=== PATIENT | female | born 1990 | race Caucasian/White ===

== ENCOUNTER 2020-01-03 17:49 | Day surgery (SDC) | payer BC ==
[2020-01-03 18:33] VITALS: BP 120/79; TEMP 98.2; BMI 23.6
[2020-01-03] MEDS ORDERED: hydrALAZINE 20 MG/ML VIAL SLOW IVP PRN (18:41)
--- NOTE | 2020-01-03 18:54 | PDOC.EVN ---
Event Note - Event Note Event Note: At bedside, clinically well...rather than 2 hrs obs we will do 1 hr as stable and lives near by.
--- NOTE | 2020-01-03 19:06 | HP ---
TIME OF EVALUATION: Roughly 1830 hours. LOCATION: Labor and Delivery Triage in bed A. REASON FOR EVALUATION: Suspected onset of labor. HISTORY OF PRESENT ILLNESS: This is a 29-year-old female, who is a 2, para 1, with a prior vaginal , who is at 37 weeks and 5 days with possible contractions. She denies vaginal bleeding or leakage of fluid and has good movement. She denies any complications. She denies headaches, visual changes, or right upper quadrant pain. REVIEW OF SYSTEMS: Complete review of systems was checked and is otherwise negative unless specified in the HPI. PAST MEDICAL HISTORY: Noncontributory. ALLERGIES: NONE. OB HISTORY: She is G2, P1. SOCIAL HISTORY: Negative. PHYSICAL EXAMINATION: VITAL SIGNS: Her blood pressure is 120/79, pulse is 97, respirations are 18, temperature is 98.2. GENERAL: She is in no acute distress. ABDOMEN: Soft and nontender. There is no gross evidence of bleeding or of ruptured membranes. Cervical exam is 3 cm dilated, 80% effaced, 0 station according to the nurse, who checked her at initial check, and she states that she was 2 cm dilated, 75% effaced, and [address] Mooney, who is her regular [facility] provider at last check. On external monitor, heart tones are Reactive/category 1. Contractions on TOCO are irregular, but about every 6 to 7, to 6 to 8 minutes. ASSESSMENT: This is a G2, P1, at early term with latent labor. PLAN: 1. Observe for 2 hours. 2. Reassuring heart tones. 3. If the patient makes cervical change or there is evidence of labor progress, we will admit. Otherwise, we will do outpatient management. Job ID: [id number]
--- NOTE | 2020-01-03 20:12 | PDOC.EVN ---
Event Note - Event Note Event Note: At bedside...clinically well. Recheck at 2 hr micah Ts cat 1
== END 2020-01-03 20:50 | disposition home or self-care (01) ==
LOC: L&D/OP 17:49
PROVIDERS: ATTEND Obstetrics & Gynecology
DX: O47.1 False labor at or after 37 completed weeks of gestation (principal); Z3A.37 37 weeks gestation of pregnancy

== ENCOUNTER 2020-01-16 05:36 | Inpatient (IN) | payer BC ==
[2020-01-16 06:01] VITALS: BMI 23.7
[2020-01-16] MEDS ORDERED: NS / Oxytocin 40 units/1000ml 1,000 ML IV PRN (06:10)
[2020-01-16] MEDS ORDERED: NS w/ Oxytocin 10 units 500 ML IV SCH ×2 (06:10)
[2020-01-16] MEDS ORDERED: Ondansetron PF 4 MG/2 ML Vial IVP PRN ×3 (06:10→14:12)
[2020-01-16] MEDS ORDERED: Butorphanol Tartrate 1 MG/ML VIAL SLOW IVP PRN (06:10)
[2020-01-16] MEDS ORDERED: Promethazine HCl 25 MG/ML VIAL IM PRN ×2 (06:10→08:53)
[2020-01-16] MEDS ORDERED: Lidocaine 1% (PF) 30 ML VIAL SC PRN (06:10)
[2020-01-16] MEDS ORDERED: hydrALAZINE 20 MG/ML VIAL SLOW IVP PRN ×2 (06:10→14:12)
[2020-01-16] MEDS ORDERED: HYDROcodone/Acetaminophen 5/325 mg Tablet PO PRN ×4 (06:10→14:12)
[2020-01-16] MEDS ORDERED: Ibuprofen 800 MG TAB PO PRN (06:10)
[2020-01-16] MEDS: Lactated Ringer's 1,000 ML IV SCH ×2 (06:22→08:50)
[2020-01-16 06:44] LABS: Hemoglobin 11.8 g/dL (12.0-16.0); Mean Corpuscular Hemoglobin 29.7 pg (27.0-31.0); Mean Corpuscular Volume 85.1 fL (78.0-98.0); Mean Platelet Volume 8.4 fL (7.4-10.4); Platelet Count 225 thou/uL (130-400); RBC Distribution Width 17.4 % (11.5-14.5); Red Blood Cell (RBC) Count 3.97 mill/uL (4.20-5.40); White Blood Cell (WBC) Count 8.4 thou/uL (4.8-10.8)
[2020-01-16 07:25] LABS: HBSAg Index 0.16 S/CO (0-0.99); Hep B Surf Ag Non-Reactive S/CO (NonReactive); Syphilis Antibody Nonreactive (Nonreactive); Syphilis Antibody Index 0.05 S/CO (<1.00 Non-Reactive)
[2020-01-16] MEDS ORDERED: Fentanyl 4 mcg/Bup 0.1% Cadd 100 ML ONE (08:12)
[2020-01-16] MEDS ORDERED: Acetaminophen 325 MG TAB PO PRN (08:53)
[2020-01-16] MEDS ORDERED: Lactated Ringer's 500 ML IV PRN (08:53)
[2020-01-16] MEDS ORDERED: Naloxone HCl 0.4 mg/ml Vial IVP PRN ×2 (08:53)
[2020-01-16] MEDS ORDERED: diphenhydrAMINE 50 MG/ML VIAL IVP PRN (08:53)
[2020-01-16] MEDS ORDERED: EPHEDRINE 25 MG/5 ML SYRINGE SLOW IVP PRN (08:53)
[2020-01-16] MEDS ORDERED: Communication Order-Pharmacy FS SCH (09:00)
[2020-01-16] MEDS ORDERED: Fentanyl 4 mcg/Bupivacaine 0.1% Cassette 100 ML EPIDURAL SCH (09:00)
--- NOTE | 2020-01-16 10:45 | PDOC.OPDEL ---
OB Operative/Delivery Note Delivery Dr/Surgeon: Vinicio Pre-Delivery Diagnosis: elective induction Procedure/Post Delivery Dx: spontaneous vaginal delivery Weeks gestation: 39 Anesthesia: epidural - Findings A Sex: male - Additional Findings/Plan Placenta delivered: spontaneous Repaired Obstetrical Laceration: vaginal Estimated blood loss: 100ml
[2020-01-16] MEDS ORDERED: Preparation H Ointment 28 GM TUBE PR PRN (14:12)
[2020-01-16] MEDS ORDERED: Bisacodyl 10 MG SUPP PR PRN (14:12)
[2020-01-16] MEDS ORDERED: NS / Oxytocin 40 units/1000ml 1,000 ML IV SCH (14:12)
[2020-01-16] MEDS ORDERED: Lanolin Ointment 7 GM TUBE TOP PRN (14:12)
[2020-01-16] MEDS ORDERED: Benzocaine-Menthol 82.5 ML CAN TOP PRN (14:12)
[2020-01-16] MEDS ORDERED: diphenhydrAMINE 25 MG CAP PO PRN (14:12)
[2020-01-16] MEDS ORDERED: Milk Of Magnesia 30 ML UDCUP PO PRN (14:12)
[2020-01-16] MEDS ORDERED: Bupivacaine 0.25% HCL 30 ML VIAL ONE (14:23)
[2020-01-16] MEDS: Ibuprofen 800 MG TAB PO SCH ×2 (15:17→23:25)
[2020-01-16] MEDS: Ferrous Sulfate 325 MG TAB PO SCH (15:17)
[2020-01-16] MEDS: Docusate Calcium (SURFAK) 240 MG CAP PO SCH (23:25)
[2020-01-17 05:13] VITALS: TEMP 98.3
--- NOTE | 2020-01-17 07:51 | PDOC.PP ---
Post Progress Note Post Day #: 1 Subjective: doing well, no concerns. PO intake tolerated: yes Flatus: yes Ambulation: yes Vital Signs (12 hours) Temp Pulse Resp BP 01/17/20 04:00 98.3 F 91 14 121/80 Weight Weight 134 lb - Physical Examination Respiratory: non-labored breathing Abdominal: no distention Fundus firm & at: below umb Neurological: no gross focal deficits Psychiatric: A&Ox3, normal affect Result Diagrams: 01/16/20 06:35 Additional Labs: Post Labs Blood Type A POSITIVE 01/16/20 06:35 Hep Bs Antigen Non-Reactive S/CO (NonReactive) 01/16/20 06:35 (1) 39 weeks gestation of Code(s): Z3A.39 - 39 WEEKS GESTATION OF Status: Acute (2) Vaginal delivery Code(s): O80 - ENCOUNTER FOR FULL-TERM UNCOMPLICATED DELIVERY Status: Acute - Assessment/Plan PPD1 doing well, desires DC home today.
[2020-01-17 08:14] VITALS: BP 121/75
[2020-01-17] MEDS: Ferrous Sulfate 325 MG TAB PO SCH (08:49)
[2020-01-17] MEDS: Docusate Calcium (SURFAK) 240 MG CAP PO SCH (08:49)
[2020-01-17] MEDS ORDERED: Adacel (T-DAP) 0.5 ML SYRINGE IM ONE (09:00)
[2020-01-17] MEDS ORDERED: Prenatal Vitamin 1 TAB PO SCH (09:00)
== END 2020-01-17 13:05 | disposition home or self-care (01) | DRG 807 ==
LOC: L&D 05:36 → 3SW 14:16 → EDSTATUS 15:07
PROVIDERS: ADMIT Obstetrics & Gynecology; ATTEND Obstetrics & Gynecology
PROC: 10E0XZZ Delivery of Products of Conception, External Approach (ICD-10-PCS; principal; 2020-01-16)
PROC: 0KQM0ZZ Repair Perineum Muscle, Open Approach (ICD-10-PCS; 2020-01-16)
PROC: 10907ZC Drainage of Amniotic Fluid, Therapeutic from Products of Conception, Via Natural or Artificial Opening (ICD-10-PCS; 2020-01-16)
PROC: 3E033VJ Introduction of Other Hormone into Peripheral Vein, Percutaneous Approach (ICD-10-PCS; 2020-01-16)
DX: O70.1 Second degree perineal laceration during delivery (principal); Z37.0 Single live birth; Z3A.39 39 weeks gestation of pregnancy
CPT/HCPCS: 36415; 51702; 85027; 86780; 86850; 86900; 86901; 87340; J2590; S0020